=== PATIENT | female | born 1995 | race African-American/Black ===

== ENCOUNTER 2021-07-25 19:50 | Emergency (ER) | payer MEDICAID ==
[2021-07-26 17:10] LABS: SARS-CoV-2 PCR by NAA Not Detected (NotDetected)
== END 2021-07-25 21:30 | disposition home or self-care (01) ==
LOC: CSHERS 19:50
DX: R05.9 Cough, unspecified (principal); J45.909 Unspecified asthma, uncomplicated; Z20.822 Contact with and (suspected) exposure to COVID-19
CPT/HCPCS: 99284; U0003; U0005

== ENCOUNTER 2021-09-12 14:18 | Emergency (ER) | payer OTHER ==
[2021-09-12] MEDS ORDERED: Ketorolac Tromethamine 30 MG/ML VIAL ONE (15:06)
== END 2021-09-12 16:26 | disposition home or self-care (01) ==
LOC: CSHERS 14:18
DX: M79.671 Pain in right foot (principal); M54.41 Lumbago with sciatica, right side; E66.9 Obesity, unspecified; J45.909 Unspecified asthma, uncomplicated
CPT/HCPCS: 96372; J1885